=== PATIENT | female | born 1970 | race Caucasian/White ===

== ENCOUNTER → 2017-05-19 13:45 | Outpatient (CLI) | payer MEDICAID, SELFPAY | PROVIDERS: Visit Provider Physician Assistant | DX: Z79.899 Other long term (current) drug therapy (principal) ==

== ENCOUNTER → 2017-05-26 16:14 | Outpatient (CLI) | payer MEDICAID, SELFPAY ==
--- NOTE | 2017-05-26 16:18 | XR_ITS ---
XR lumbar spine min 4V Ordering Physician: EDMUND [place] Patient Age: 47 years: Female HISTORY: ITS.REASON: Low back pain TECHNIQUE: 5 view L-spine COMPARISON :. June 2007 FINDINGS Lumbar vertebral bodies are intact with no compression fractures or lesions. This spaces are fairly well-maintained throughout. Early anterior lipping reflecting, early most developing marginal osteophytes L4 and to lesser other levels of the lumbar spine. The facets appear intact. IMPRESSION: . Vertebral bodies and disc spaces intact. No acute findings. L-spine No significant change since 2007
[2017-05-26 20:32] LABS: Amphetamine/Metha Screen,Urine Negative ng/mL (<1000); Barbiturates Screen,Urine Negative ng/mL (<200); Benzodiazepines Screen,Urine Negative ng/mL (200); Cannabinoid Screen,Urine Negative ng/mL (<50); Cocaine Screen,Urine Negative ng/g (<300); Methadone Screen,Urine Negative ng/mL (<300); Opiate Screen,Urine Negative ng/mL (<300); Phencyclidine Screen,Urine Negative ng/mL (<25)
== END ==
PROVIDERS: PCP Physician Assistant; Visit Provider Physician Assistant
DX: M54.16 Radiculopathy, lumbar region (principal); Z79.899 Other long term (current) drug therapy
CPT/HCPCS: 72110; 80305

== ENCOUNTER → 2017-08-24 09:50 | Outpatient (CLI) | payer MEDICAID, SELFPAY ==
[2017-08-24 11:19] VITALS: PULSE 64; PULSE 68
== END ==
PROVIDERS: Family Provider Physician Assistant; PCP Physician Assistant; Visit Provider Physician Assistant
DX: R06.00 Dyspnea, unspecified (principal); R06.2 Wheezing
CPT/HCPCS: 94060; 94640

== ENCOUNTER → 2018-10-10 14:25 | Outpatient (CLI) | payer MEDICAID, SELFPAY ==
[2018-10-10 17:44] LABS: Amphetamine/Metha Screen,Urine Negative ng/mL (<1000); Barbiturates Screen,Urine Negative ng/mL (<200); Benzodiazepines Screen,Urine Positive ng/mL (<200); Cannabinoid Screen,Urine Positive ng/mL (<50); Cocaine Screen,Urine Negative ng/mL (<300); Methadone Screen,Urine Negative ng/mL (<300); Opiate Screen,Urine Negative ng/mL (<300); Phencyclidine Screen,Urine Negative ng/mL (<25)
== END ==
PROVIDERS: Visit Provider Physician Assistant
DX: Z79.899 Other long term (current) drug therapy (principal)
CPT/HCPCS: 80305

== ENCOUNTER → 2018-12-07 18:16 | Outpatient (CLI) | payer OTHER, SELFPAY ==
[2018-12-07 20:27] LABS: Amphetamine/Metha Screen,Urine Negative ng/mL (<1000); Barbiturates Screen,Urine Negative ng/mL (<200); Benzodiazepines Screen,Urine Positive ng/mL (<200); Cannabinoid Screen,Urine Negative ng/mL (<50); Cocaine Screen,Urine Negative ng/mL (<300); Methadone Screen,Urine Negative ng/mL (<300); Opiate Screen,Urine Negative ng/mL (<300); Phencyclidine Screen,Urine Negative ng/mL (<25)
== END ==
PROVIDERS: Visit Provider Emergency Medicine
DX: Z79.899 Other long term (current) drug therapy (principal)
CPT/HCPCS: 80305

== ENCOUNTER → 2019-02-28 18:04 | Outpatient (CLI) | payer OTHER, SELFPAY ==
[2019-02-28 19:58] LABS: Amphetamine/Metha Screen,Urine Negative ng/mL (<1000); Barbiturates Screen,Urine Negative ng/mL (<200); Benzodiazepines Screen,Urine Positive ng/mL (<200); Cannabinoid Screen,Urine Negative ng/mL (<50); Cocaine Screen,Urine Negative ng/mL (<300); Methadone Screen,Urine Negative ng/mL (<300); Opiate Screen,Urine Negative ng/mL (<300); Phencyclidine Screen,Urine Negative ng/mL (<25)
== END ==
PROVIDERS: Visit Provider Emergency Medicine
DX: Z79.899 Other long term (current) drug therapy (principal)
CPT/HCPCS: 80305

== ENCOUNTER 2020-10-07 16:19 | Emergency (ER) | payer OTHER, SELFPAY ==
[2020-10-07 17:40] VITALS: BP 138/93; PULSE 76; RESP 19; TEMP 36.9; O2SAT 99; BMI 45.7
--- NOTE | 2020-10-07 18:22 | HMH.EDUTC ---
[facility] [place] Disposition Clinical Impression: Encounter for laboratory testing for COVID-19 virus Disposition: Home, Self-Care Condition on Discharge: Good Instructions: DI for COVID-19 (Suspected or Confirmed ), Coronavirus Disease 2019, Preventing the Spread of Coronavirus Discharge Instructions Additional Instructions: *Monitor Temp, Over the counter Motrin or Tylenol as directed/as needed Tylenol every 4 hours and Motrin every 6 hours (as long as your family doctor has told you that you can take it) for fever or pain. and straight to ER if unable to lower temp less than 101.0 after medication given * Follow up IMMEDIATELY for new or worsening symptoms or no Noticeable improvement over the next 48-72 hours. 911 for difficulty breathing or swallowing You were tested for today for COVID19 your test result should be back in the next 24-48 hours, you may call to the [facility] to see if your test results are back in the next 48 hours [phone] [facility] hours are 9am-9pm You was given a handout with instructions for Self Quarantine and Self isolation for while you wait on test results and what to do if they are positive If you are positive the Health Dept will be contacting you also Make sure to take your Vitamins Vit. C Vit D and Zinc if you can take them Referrals: Abdullahi Torres MD [Primary Care Provider] - As needed Time of Disposition: 18:23 Medical Decision Making - Owen Inquiry Pt receiving controlled substance: No Owen was queried for this patient: No Vital Signs: 10/07/20 17:40 Temperature 98.4 F Temperature Source Oral Pulse Rate [Right Brachial] 76 Respiratory Rate 19 Blood Pressure [Right Arm] 138/93 H Blood Pressure Mean [Right Arm] 108 Blood Pressure Source [Right Arm] Automatic Cuff Blood Pressure Position [Right Arm] Sitting 02 Sat by Pulse Oximetry 99 Oxygen Delivery Method Room Air Orders (Tests/Meds): ORDERS Category Date Time Status Covid-19 Nasal PCR ([facility]) Routine Lab 10/07/20 17:46 Received [facility] [place] HPI - General Stated complaint: covid test Time Seen by Provider: 10/07/20 18:22 Mode of Arrival: Ambulatory Source of Information: Patient Limitations: No Limitations Description of Symptoms (Recalled from Triage Doc. by RN): COVID TEST D/T POSSIBLE EXPOSURE HEENT Symptoms (Recalled from RN notes): No Resp Symptoms (Recalled from RN notes): No Skin Symptoms (Recalled from RN notes): No MS Symptoms (Recalled from RN notes): No Functional Status (Recalled from RN notes): WNL - History of Present Illness Provider Complaint: Patient states that she wants to get tested for COVID States that she thinks she may have been around someone that is positive for COVID denies any symptoms - Related Data Home Medications Medication Instructions Recorded Confirmed ipratropium 18 mcg-albuterol 103 spray INHALATION .every 4 hrs 09/09/18 09/28/19 mcg/actuation aerosol inhaler Previous Rx's Medication Instructions Recorded albuterol sulfate 1.25 mg/3 mL 1.25 mg INHALATION QID PRN #120 ml 01/24/18 solution for nebulization fluticasone propionate 50 1 spray INTRANASAL QDAY 30 Days 03/17/19 mcg/actuation nasal #9.9 g spray,suspension bupropion HCl 300 mg 24 hr tablet, 300 mg PO QAM #90 tab 10/02/19 extended release fluticasone furoate 100 1 inh INHALATION DAILY #60 each 10/02/19 mcg-vilanterol 25 mcg/dose inhalation powder ipratropium 20 mcg-albuterol 100 1 puff INHALATION Q6H #4 g 10/02/19 mcg/actuation mist for inhalation propranolol 20 mg tablet 20 mg PO BID #180 tab 10/02/19 Allergies Allergy/AdvReac Type Severity Reaction Status Date / Time codeine [CODEINE] Allergy Intermediate I-HIVES Verified 09/28/19 10:38 Sulfa (Sulfonamide Allergy Intermediate I-HIVES Verified 09/28/19 10:38 Antibiotics) [SULFA (SULFONAMIDE ANTIBIOTICS)] - Worker's Comp Is this a Worker's Comp case?: No [facility] History - Hepatitis A Screen Drug use history?: No High ris
[2020-10-07 18:28] VITALS: BP 138/93; PULSE 76; RESP 19; TEMP 36.9; O2SAT 99
== END 2020-10-07 18:30 | disposition home or self-care (01) ==
PROVIDERS: Emergency Provider Nurse Practitioner; PCP Internal Medicine Adolescent Medicine
DX: Z20.822 Contact with and (suspected) exposure to COVID-19 (principal); F41.8 Other specified anxiety disorders; J44.9 Chronic obstructive pulmonary disease, unspecified; I10 Essential (primary) hypertension; F17.210 Nicotine dependence, cigarettes, uncomplicated
CPT/HCPCS: 99202; G0463; U0003